=== PATIENT | male | born 1995 | race Caucasian/White ===

== ENCOUNTER 2016-12-06 19:14 | Emergency (ER) | payer BC ==
[~2016-12-06] VITALS: Ht 188 cm; Wt 100.0 kg
[~2016-12-06 19:14] MED LIST: VYVANSE50 MG PO
[2016-12-06 19:17] VITALS: TEMP 98
[2016-12-06] MEDS ORDERED: MULTI VITAMINS1 TAB PO (19:19)
[2016-12-06 20:16] VITALS: BP 136/74; PULSE 62
== END 2016-12-06 20:16 | disposition home or self-care (01) ==
LOC: COL.ER 19:14
DX: S82.831A Other fracture of upper and lower end of right fibula, initial encounter for closed fracture (principal); X50.1XXA Overexertion from prolonged static or awkward postures, initial encounter; Y92.89 Other specified places as the place of occurrence of the external cause